=== PATIENT | male | born 1960 | race Caucasian/White ===

== ENCOUNTER 2016-10-23 22:03 | Emergency (ER) | payer BC ==
[~2016-10-23] VITALS: Ht 188 cm; Wt 106.9 kg
[~2016-10-23 22:03] MED LIST: ANTIVERT25 MG PO; BENAZEPRIL HCL20 MG PO; CARVEDILOL12.5 MG PO; CARVEDILOL25 MG PO; COLD PO; COREG CR10 MG PO; COREG12.5 M1 PO; DIGOXIN250 MCG PO; FUROSEMIDE20 MG PO; GLUMETZA1000 M1; LANOXIN,DIGIT0.25 MG PO; LEVOTHROID,S0.112 MG PO; LEVOTHYROXINE112 MCG PO; LOTENSIN20 M1 PO; ROBITUSSIN COUGH PO; SIMVASTATIN20 MG PO; TAMIFLU75 MG; [UNRECOGNIZED DRUG - OTHER] PO; [UNRECOGNIZED DRUG - OTHER] PO
[2016-10-23 22:58] LABS: HEMATOCRIT 42.8 % (38.0-50.0); MCH 30.1 PG (29.0-34.0); MCV 85.9 FL (86-99); MEAN PLAT.VOLUME 10.3 uM^3 (9.0-12.4); PLATELET COUNT 294 K/uL (156-360); RBC DIS.WIDTH-CV 12.2 % (11.8-14.6); RBC DIS.WIDTH-SD 37.5 % (39-53); RED BLOOD COUNT 4.98 M/uL (4.00-5.50); WHITE BLOOD COUNT 9.5 K/uL (4.1-10.2)
[2016-10-23 23:16] LABS: CHLORIDE 102 mEq/L (99-109); POTASSIUM 4.3 mEq/L (3.7-5.4); SODIUM 139 mEq/L (136-147)
[2016-10-23 23:17] LABS: GLUCOSE 283 mg/dL (70-99)
[2016-10-23 23:19] LABS: ANION GAP 13 MEQ/L (2-14)
[2016-10-23 23:21] LABS: GFR ESTIMATE (CALCULATED) > 59 mL/min/
[2016-10-23 23:22] LABS: UREA NITROGEN (BUN) 11 mg/dL (9-23)
[2016-10-23 23:26] LABS: D-DIMER ELISA 0.23 mg/L FEU (< 0.57)
[2016-10-23 23:27] LABS: TROP-I INTERPRETATION NEGATIVE; TROPONIN-I < 0.01 ng/mL (0.0-0.30)
[2016-10-24 00:05] VITALS: BP 145/75
== END 2016-10-24 00:06 | disposition home or self-care (01) ==
LOC: EME 22:03
PROVIDERS: Emergency Medicine
DX: R07.89 Other chest pain (principal); R06.02 Shortness of breath; I50.9 Heart failure, unspecified; E03.9 Hypothyroidism, unspecified; Z87.891 Personal history of nicotine dependence; Z95.0 Presence of cardiac pacemaker
CPT/HCPCS: 71020; 80048; 84484; 85027; 85379; 93005; 99281; 99284